=== PATIENT | female | born 1960 | race Caucasian/White ===

== ENCOUNTER 2019-01-26 00:43 | Outpatient (CLI) | payer MEDICARE, MEDICAID, SELFPAY ==
--- NOTE | 2019-01-26 07:21 | DI.DEXA_ITS ---
SYMPTOM/DIAGNOSIS: SCREENING FOR OSTEOPOROSIS IN POSTMENOPAUSAL WOMAN, Z78.0, DENTIST NOTED POOR BONE DENSITY, M81.0 DEXA SCAN: Routine examination. No priors for comparison. The lateral view of the spine shows no compression deformities. Evaluation of the left hip shows a total T score of 0.7 and a Z score of 1.5. Evaluation of the lumbar spine shows a total T score of 2 and a Z score of 3.2. These findings are within normal limits. No evidence of osteoporosis is seen.
--- NOTE | 2019-01-26 16:00 | DI.MAMMO_ITS ---
SYMPTOMS/DIAGNOSIS: SCREENING, Z12.31 MAMMOGRAMS: Mammograms were interpreted according to the usual protocol including computer analysis with CAD system, tomosynthesis and C view imaging. The breast tissue is of moderate radiodensity. There is no evidence of a mass. There are no suspicious calcifications and there has been no significant interval change when compared with prior images. SUMMARY: No evidence of malignancy, category 1. Yearly screening mammography is recommended. Breast density category B. SA ASSESSMENT OF FINDINGS: Negative. Category 1. Patient will receive a letter notifying them of these results. BI-RADS category B. There are scattered areas of fibroglandular density.
== END 2019-01-26 01:03 ==
PROVIDERS: PCP Student in an Organized Health Care Education/Training Program; Visit Provider Student in an Organized Health Care Education/Training Program
DX: Z12.31 Encounter for screening mammogram for malignant neoplasm of breast (principal); Z13.820 Encounter for screening for osteoporosis; Z78.0 Asymptomatic menopausal state
CPT/HCPCS: 77063; 77067; 77080

== ENCOUNTER → 2019-02-18 14:24 | Outpatient (BNVA) | payer MEDICARE, MEDICAID, SELFPAY | PROVIDERS: PCP Student in an Organized Health Care Education/Training Program; Referring Provider Student in an Organized Health Care Education/Training Program; Visit Provider Physical Therapy Assistant | DX: R69 Illness, unspecified (principal) ==

== ENCOUNTER 2019-02-24 16:44 | Outpatient (REF) | payer MEDICARE, MEDICAID, SELFPAY ==
--- NOTE | 2019-02-24 13:30 | PAPFT_PTH ---
PATIENT: Patricio Talbert LOC: [facility] U#:[id number] AGE/SX: 58/F ROOM: RE02/24/[address]: Monica Ferrell DO : 1960 BED: DIS: 02/24/2019 SPEC #: [id number] RECD: 02/25/19 12:47 STATUS: [place] #: [id number] EDWARD: 02/24/19 13:[address]: Monica Ferrell DEPT: [facility] Cytology RECD BY: Hiral Mullen Tissues: 1 - CX/ENDOCX FOR PAP SMEARS Procedures: PAP THIN PREP/[facility] Screening HPV DNA PROBE Comments: [id number]
== END 2019-02-24 17:04 ==
LOC: LBN 16:44
PROVIDERS: PCP Student in an Organized Health Care Education/Training Program; Visit Provider Student in an Organized Health Care Education/Training Program
DX: Z12.4 Encounter for screening for malignant neoplasm of cervix (principal); Z11.51 Encounter for screening for human papillomavirus (HPV)
CPT/HCPCS: 88142; 87624

== ENCOUNTER 2021-08-07 19:19 | Outpatient (REF) | payer MEDICARE, MEDICAID, SELFPAY ==
[2021-08-09 15:29] LABS: COVID-19 RT-PCR UVMMC Result Negative (Negative)
== END 2021-08-07 19:20 | disposition home or self-care (01) ==
LOC: NCHCN 19:19
PROVIDERS: Visit Provider Internal Medicine
DX: Z20.822 Contact with and (suspected) exposure to COVID-19 (principal)
CPT/HCPCS: U0003

== ENCOUNTER 2021-09-10 15:07 | Outpatient (REF) | payer MEDICARE, MEDICAID, SELFPAY ==
[2021-09-12 15:06] LABS: COVID-19 RT-PCR UVMMC Result Negative (Negative)
== END 2021-09-10 15:08 | disposition home or self-care (01) ==
LOC: NCHCN 15:07
PROVIDERS: Visit Provider Nurse Practitioner Family
DX: Z20.822 Contact with and (suspected) exposure to COVID-19 (principal)
CPT/HCPCS: U0003